=== PATIENT | female | born 1965 | race Caucasian/White ===

== ENCOUNTER 2017-12-05 08:44 | Emergency (ER) | payer BC ==
[~2017-12-05] VITALS: Ht 162.6 cm; Wt 56.7 kg
== END 2017-12-05 11:35 | disposition home or self-care (01) ==
LOC: ER 08:44
DX: S90.111A Contusion of right great toe without damage to nail, initial encounter (principal); W22.8XXA Striking against or struck by other objects, initial encounter; Y93.89 Activity, other specified; Y92.89 Other specified places as the place of occurrence of the external cause; Y99.8 Other external cause status